=== PATIENT | male | born 1995 | race Two or more races ===

== ENCOUNTER → 2016-07-17 | Emergency (ER) | payer MEDICAID, OTHER ==
[2016-07-17 12:33] VITALS: BP 130/86; PULSE 106; RESP 18; TEMP 98.4; O2SAT 94
--- NOTE | 2016-07-17 13:37 | UCPHY ---
H & P Patient Type: Established Chief Complaint Nursing Narrative: ST 3 days Time Seen by Provider: 07/17/16 12:47 HPI/ROS: Chief complaint: Sore throat HPI: 20-year-old male presenting with 3 days of sore throat and pain with swallowing. He is able swallow. No fevers or chills. Some mild cough. He was traveling in [place] when this started. No nausea vomiting or diarrhea. Does have a history of strep throat in the past and feels similar. No ear pain. Has had some nasal congestion. ROS: 10 point Review of Systems is negative except as noted in the HPI. Past medical history: None Medications: None Allergies: Latex Social history: Occasional alcohol, positive smoking, occasional marijuana use Physical exam: Gen: Awake, Alert, No Distress HEENT: Nose: no rhinorrhea Eyes: PERRLA, EOMI Mouth: Moist mucosa oropharynx has diffuse erythema without exudate or edema Neck: Supple, no JVD, mild lymphadenopathy Skin: no rash Neuro: CN II-XII intact, Sensation grossly intact, Strength 5/5 in bilateral upper and lower extremities - Medical/Surgical History Other PMH: none - Family History Significant Family History: No pertinent family hx - Social History Smoking Status: Current every day smoker Constitutional: Initial Vital Signs Temperature (C) 36.9 C 07/17/16 12:30 Heart Rate 106 H 07/17/16 12:30 Respiratory Rate 18 07/17/16 12:30 Blood Pressure 130/86 H 07/17/16 12:30 O2 Sat (%) 94 07/17/16 12:30 O2 Delivery Mode Room Air Allergies/Adverse Reactions: latex Allergy (Verified 07/17/16 12:33) Home Medications: Medication Instructions Recorded NK [No Known Home Meds] 09/18/15 Medical Decision Making ED Course/Re-evaluation: Rapid strep is negative - Data Points Laboratory Results: 07/17/16 07/17/16 Unknown 12:35 Group A Strep Screen NEGATIVE (NEGATIVE) Group A Strep DNA Pending Departure - Departure Disposition: Home, Routine, Self-Care Clinical Impression: Pharyngitis Condition: Good Instructions: Pharyngitis (ED) Additional Instructions: Follow up with primary care physician in 3-4 days if symptoms are not improving. He may take ibuprofen alternating with acetaminophen as needed for your pain. Referrals: Denis Manzanares DO [Primary Care Provider] - As per Instructions - PQRS PQRS Measurement: NA
== END | disposition home or self-care (01) ==
LOC: CED 12:06
DX: J02.9 Acute pharyngitis, unspecified (principal)
CPT/HCPCS: 87880-PO; 99214-PO; G0463-PO

== ENCOUNTER 2017-06-12 19:45 | Emergency (ER) | payer MEDICAID, OTHER ==
[2017-06-12 19:51] VITALS: BP 113/83; PULSE 121; RESP 18; TEMP 98.8; O2SAT 94
--- NOTE | 2017-06-12 20:15 | EDPHY ---
General - History Smoking Status: Current every day smoker Time Seen by Provider: 06/12/17 20:08 Narrative: The patient was evaluated and managed by the physician's assistant at surgery. My cosignature indicates that I reviewed the chart and I agree with the findings and plan of care as documented. I am the secondary supervising physician. ( Kaur Foster) CHIEF COMPLAINT: Left knee pain, injury HISTORY OF PRESENT ILLNESS: Patient complains of left knee pain after injury 2 hr ago. He was walking on the ice when he slipped. He said his left knee twisted inward and his left foot twisted outward. He felt a sudden onset of pain on the inside of the left knee. he states "I think it's my MCL." Able to ambulate but it is painful to do so. Bony tenderness. No numbness, tingling or weakness. He feels that it is swollen. He did not strike the knee on the ground. He did not strike his head or any other location was person on the ground. He has no pain elsewhere. It is rated as moderate to severe with palpation ambulation. Rated as mild to moderate at rest. No other associated complaints or modifying factors. ESTABLISHED ORTHOPEDIST: None REVIEW OF SYSTEMS: Ten systems reviewed and are negative unless otherwise noted in the HPI PAST MEDICAL HISTORY: Denies any medical history PAST SURGICAL HISTORY: Denies any surgical history SOCIAL HISTORY: [employer] student. Originally from [place], [place] FAMILY HISTORY: Noncontributory EXAMINATION General Appearance: Alert, no distress Cardiovascular: Symmetric DP and PT pulses 2+. Good signs of perfusion to lower extremities. Neurological: A&O, light touch is symmetric in the dorsum of the foot and plantar surface. Normal proprioception of the left great toe. No footdrop on the left. Skin: Warm and dry, no rash. No petechiae. No laceration or abrasion. No ecchymosis. Extremities: Tenderness of the left knee over the medial joint line. There is minimal swelling. There is no crepitus or deformity. No tenderness of the patella. No tenderness to the tibia or proximal fibula. Range of motion of the extremities symmetric. Negative drawer test. Negative Andres. He is ambulatory on this leg. Psychiatric: Mood and affect normal DIFFERENTIAL DIAGNOSES: Including but not limited to mcl sprain, meniscal injury, fracture, hemarthrosis , strain MDM: 8:15 p.m. Acute sprain of the left knee, likely the MCL. I do not think this is an ACL or PCL injury. I do not appreciate any bony tenderness. I did offer an x-ray of the knee but he has declined. He has arrive with his own neoprene brace on that is non locking. He is easily ambulatory on this without difficulty. he would like to go home. We discussed follow up with the on-call orthopedist for definitive care. We discussed ED precautions for any worsening swelling, numbness, tingling, cyanosis or pallor. He is comfortable this plan and discharged home fully ambulatory in stable condition. SUPERVISION: This patient was independently evaluated without direct involvement of or examination by the attending physician. ED Precautions: Worsening pain. Erythema, edema, cyanosis, pallor, paresthesia or anesthesia. (Noah Green) - Objective Vital Signs: Initial Vital Signs Temperature (C) 98.8 F 06/12/17 19:47 Heart Rate 121 H 06/12/17 19:47 Respiratory Rate 18 06/12/17 19:47 Blood Pressure 113/83 H 06/12/17 19:47 O2 Sat (%) 94 06/12/17 19:47 O2 Delivery Mode Room Air Allergies/Adverse Reactions: latex Allergy (Verified 07/17/16 12:33) Penicillins Allergy (Verified 06/12/17 19:51) Home Medications: Medication Instructions Recorded Adderall 10 MG (*) 06/12/17 Departure - Departure Disposition: Home, Routine, Self-Care Clinical Impression: Left knee sprain Qualifiers: Encounter type: initial encounter Involved ligament of knee: medial collateral ligament Qualified Code(s): S83.412A - Sprain of medial collateral ligament of left knee, initial encounter Condition: Good Instructions: Knee Sprain (ED) Additional Instructions: 1. Weightbearing as tolerated 2. Ice and elevation often 3. Ibuprofen 600 mg every 8 hr as needed for pain for the next 5-7 days 4. Contact the on-call orthopedist as provided for outpatient management 5. ED precautions as discussed Referrals: Denis Manzanares DO [Primary Care Provider] - As per Instructions Jarred Lubin MD [Medical Doctor] - As per Instructions
== END 2017-06-12 20:31 | disposition home or self-care (01) ==
DX: S83.412A Sprain of medial collateral ligament of left knee, initial encounter (principal); F17.200 Nicotine dependence, unspecified, uncomplicated; Z91.040 Latex allergy status; W00.0XXA Fall on same level due to ice and snow, initial encounter; Y93.01 Activity, walking, marching and hiking

== ENCOUNTER → 2017-07-06 | Outpatient (CLI) | payer MEDICAID | LOC: FIMAGING 14:56 | PROVIDERS: ATTEND Family Medicine | DX: S83.412A Sprain of medial collateral ligament of left knee, initial encounter (principal); S83.522A Sprain of posterior cruciate ligament of left knee, initial encounter; S80.02XA Contusion of left knee, initial encounter ==